=== PATIENT | male | born 2000 | race Native Hawaiian/Other Pacific Islander ===

== ENCOUNTER 2018-02-16 19:02 | Emergency (ER) | payer SELFPAY ==
[~2018-02-16] VITALS: Ht 188 cm; Wt 80.0 kg
[2018-02-16 19:36] VITALS: BP 129/89; PULSE 58; RESP 18; TEMP 98.6; O2SAT 99
[2018-02-16] MEDS ORDERED: BENZ100 PO (19:57)
--- NOTE | 2018-02-16 19:57 | PD ---
HPI Chief Complaint: Cold / Flu Symptoms Time Seen by Provider: 19:53 Travel History International Travel<30 days: No Contact w/Intl Traveler<30days: No Traveled to known affect area: No History of Present Illness HPI 18-year-old male presents to the emergency room for evaluation of mildly productive cough, congestion, sore throat, earache, nausea, and fatigue for the past 5 days. Patient states symptoms worsened 3 days ago. He is a student at [employer] [place]. No objective fevers. He has been taking multiple over-the- counter medications without relief in symptoms. No chronic medical conditions or daily medications. [facility], [facility] Past Medical History Medical other: Yes ("ULCERS") Past Surgical History Surgical History: No Previous Surgery Social History Alcohol Use: No Tobacco Use: No Substance Use: No Allergies-Medications (Allergen,Severity, Reaction): Coded Allergies: No Known Allergies (Unverified , 02/16/18) Reported Meds & Prescriptions Reported Meds & Active Scripts Active No Active Prescriptions or Reported Medications Review of Systems Except as stated in HPI: all other systems reviewed are Neg Physical Exam Narrative GENERAL: Well-nourished, well-developed male in no acute distress. Afebrile. Ambulatory. SKIN: Focused skin assessment warm/dry. HEAD: Normocephalic. EYES: No scleral icterus. No injection or drainage. NECK: Supple, trachea midline. No JVD or lymphadenopathy. ENT: Mucosa pink and moist. No erythema or exudates. No uvular edema. No uvular , palatal, or tonsillar deviation. Airway patent. Nasal turbinates appear normal without nasal blood, purulent drainage or septal hematoma. EARS: Bilateral pinnae and external canals appear within normal limits. Bilateral tympanic membranes without erythema, dullness or perforation. CARDIOVASCULAR: Regular rate and rhythm without murmurs, gallops, or rubs. RESPIRATORY: Breath sounds equal bilaterally. No accessory muscle use. No crackles, rales, wheezes, or rhonchi. Data Data Last Documented VS Vital Signs Date Time Temp Pulse Resp B/P (MAP) Pulse Ox O2 Delivery O2 Flow Rate FiO2 02/16/18 19:36 98.6 58 18 129/89 (102) 99 MDM Medical Decision Making Medical Screen Exam Complete: Yes Emergency Medical Condition: Yes Medical Record Reviewed: Yes Differential Diagnosis URI, pneumonia, bronchitis, flu, strep Narrative Course 18-year-old otherwise healthy male presents to the emergency room for evaluation of cold and flu symptoms for the past 5 days. Patient is afebrile and well-appearing in the emergency room. Vital signs stable. Physical exam is unremarkable. Patient likely has viral syndrome. He was reassured and told to continue [id number] medications and follow-up with PCP return for worsening symptoms. He understands and agrees to plan. Diagnosis Primary Impression: Upper respiratory infection Qualified Codes: J00 - Acute nasopharyngitis [common cold] Referrals: Primary Care Physician Departure Forms: Tests/Procedures, Work Release Enter return to work date: Feb 19, 2018 Additional Instructions: Take medications as directed. Follow-up with a primary care physician. Return to the emergency room for worsening symptoms. Scripts No Active Prescriptions or Reported Meds Disposition: 01 DISCHARGE HOME Condition: Stable Shana Tolliver Feb 16, 2018 19:56
== END 2018-02-16 20:27 | disposition home or self-care (01) ==
LOC: NEPK 19:02
DX: J00 Acute nasopharyngitis [common cold] (principal)
CPT/HCPCS: 99283